=== PATIENT | female | born 1965 | race Caucasian/White ===

== ENCOUNTER 2018-11-12 02:00 | Emergency (ER) | payer OTHER ==
[~2018-11-12] VITALS: Ht 175.3 cm; Wt 112.0 kg
[2018-11-12 02:09] VITALS: Ht 175.3 cm; Wt 112.0 kg
[2018-11-12 05:13] VITALS: BP 153/88
== END 2018-11-12 05:13 | disposition home or self-care (01) ==
LOC: ED 02:00
DX: S09.8XXA Other specified injuries of head, initial encounter (principal); W22.8XXA Striking against or struck by other objects, initial encounter; Y93.89 Activity, other specified; Y92.89 Other specified places as the place of occurrence of the external cause; Y99.8 Other external cause status
CPT/HCPCS: J2270; J2405; J7030